=== PATIENT | female | born 1940 | race Caucasian/White ===

== ENCOUNTER → 2017-04-17 | Outpatient (CLI) | payer MEDICARE, BC | LOC: PLD 10:31 → LAB SHORT 10:31 | DX: D22.5 Melanocytic nevi of trunk (principal); D22.71 Melanocytic nevi of right lower limb, including hip | CPT/HCPCS: 88305 ==

== ENCOUNTER → 2017-10-22 | Outpatient (CLI) | payer MEDICARE, BC | END | disposition home or self-care (01) | LOC: PLD 13:55 → LAB SHORT 13:55 | DX: D22.5 Melanocytic nevi of trunk (principal); D22.72 Melanocytic nevi of left lower limb, including hip | CPT/HCPCS: 88305 ==

== ENCOUNTER 2023-01-17 03:53 | Inpatient (IN) | payer MEDICARE, BC ==
[2023-01-17] VITALS (63 sets, daily range): BP systolic 66–146; BP diastolic 40–86
[~2023-01-17] VITALS: Ht 157.5 cm; Wt 59.5 kg
[2023-01-17 04:17] LABS: BASOPHILS ABSOLUTE AUTO 0.03 K/mm3 (0.00-0.23); BASOPHILS PERCENT AUTO 0 % (0-2); EOSINOPHILS PERCENT AUTO 0 % (0-6); Hematocrit 38.1 % (33.0-51.0); Hemoglobin 12.8 g/dL (11.5-16.0); IMMATURE GRAN ABSOLUTE AUTO 0.13 K/mm3 (0.00-0.10); IMMATURE GRAN PERCENT AUTO 1 % (0-1); LYMPHOCYTES ABSOLUTE AUTO 3.41 K/mm3 (0.84-5.20); LYMPHOCYTES PERCENT AUTO 22 % (21-46); MONOCYTES ABSOLUTE AUTO 1.39 K/mm3 (0.16-1.47); MONOCYTES PERCENT AUTO 9 % (4-13); Mean Corpuscular HGB 33.4 pg (26.0-34.0); Mean Corpuscular HGB Conc 33.6 g/dL (31.5-36.5); Mean Corpuscular Volume 100 fL (80-100); Mean Platelet Volume 10.4 fL (9.1-12.4); NEUTROPHILS ABSOLUTE AUTO 10.55 K/mm3 (1.96-9.15); NEUTROPHILS PERCENT AUTO 68 % (41-73); Platelet Count 325 K/mm3 (150-400); RDW Coefficient Variation 12.4 % (11.7-14.2); RDW Standard Deviation 45.5 fL (35.1-46.3); Red Blood Cell Count 3.83 M/mm3 (3.80-5.20); White Blood Cell Count 15.51 K/mm3 (4.00-11.30)
[2023-01-17 04:18] LABS: Base Excess Venous -10.3 mmol/L; Bicarbonate Venous 15.3 mmol/L (24.0-30.0); pH Blood Venous 7.11 (7.34-7.37)
[2023-01-17 04:33] LABS: D-Dimer, Quantitative 4.19 mg/L FEU (0.00-0.52); International Normalized Ratio 0.98; Prothrombin Time Results 10.3 Sec (9.7-11.5)
[2023-01-17 04:41] LABS: Albumin, Blood 2.8 g/dL (3.4-5.0); Albumin/Globulin Ratio 0.7 (0.8-1.8); Bilirubin, Total 0.5 mg/dL (0.1-1.0); Bun/Creatinine Ratio 17.6 (12.0-20.0); Calcium, Blood 8.3 mg/dL (8.5-10.1); Creatinine, Blood 1.19 mg/dL (0.40-1.00); Globulin, Blood 4.1 g/dL (2.2-4.0); Magnesium, Blood 2.7 mg/dL (1.6-2.4); Phosphorus, Blood 4.5 mg/dL (2.5-4.9); Potassium, Blood 3.4 mmol/L (3.5-5.5); Thyroid Stimulating Hormone 1.6 uIU/mL (0.360-4.800); Total Protein, Blood 6.9 g/dL (6.4-8.2)
[2023-01-17 05:37] LABS: Source, Urine Clean Catch
[2023-01-17 05:41] LABS: Appearance, Urine Clear (Clear); Bilirubin, Urine Neg (Neg); Blood, Urine 3+ (Neg); Color, Urine Yellow (P-Yellow); Glucose Qualitative, Urine 1+ (Neg); Ketones, Urine Neg (Neg); Leukocyte Esterase, Urine Neg (Neg); Nitrite, Urine Neg (Neg); Protein, Urine 3+ (Neg); Specific Gravity, Urine 1.015 (1.003-1.022); Urobilinogen, Urine NORM (Normal)
[2023-01-17 06:09] LABS: Anti-Xa UFH, PHA Monitoring <0.10 IU/mL
[2023-01-17 06:18] LABS: U Amphetamine Screen Not Detected; U Barbituate Screen Not Detected; U Benzodiazapine Screen Not Detected; U Buprenorphine Screen Not Detected; U Cannabinoids Screen Not Detected; U Cocaine Screen Not Detected; U Methadone Screen Not Detected; U Methamphetamine Screen Not Detected; U Opiates Screen Not Detected; U Oxycodone Screen Not Detected; U Phencyclidine Screen Not Detected
[2023-01-17 06:20] LABS: White Blood Cells, Urine 0-2 /hpf (0-5)
[2023-01-17 06:21] LABS: Bacteria Mod /hpf; Granular Casts 0-2 /lpf (0); Hyaline Casts 0-2 /lpf (0-2); Squamous Epithelial Cells Few /hpf (Few)
[2023-01-17 08:34] LABS: Adenovirus Not Detected (NOT DETECT); Coronavirus 229E Not Detected (NOT DETECT); Coronavirus HKU1 Not Detected (NOT DETECT); Coronavirus NL63 Not Detected (NOT DETECT); Coronavirus OC43 Not Detected (NOT DETECT); Human Metapneumovirus Not Detected (NOT DETECT); Human Rhinovirus/Enterovirus Not Detected (NOT DETECT); Influenza A/2009-H1 Detected (NOT DETECT); Influenza A/H1 Not Detected (NOT DETECT); Influenza A/H3 Not Detected (NOT DETECT); SARS-Cov-2 (COVID-19), BioFire Not Detected (NOT DETECT)
[2023-01-17 08:35] LABS: Bordetella pertussis Not Detected (NOT DETECT); Chlamydophila pneumoniae Not Detected (NOT DETECT); Influenza B Not Detected (NOT DETECT); Mycoplasma pneumoniae Not Detected (NOT DETECT); Parainfluenza Virus 1 Not Detected (NOT DETECT); Parainfluenza Virus 2 Not Detected (NOT DETECT); Parainfluenza Virus 3 Not Detected (NOT DETECT); Parainfluenza Virus 4 Not Detected (NOT DETECT); Respiratory Syncytial Virus Not Detected (NOT DETECT)
[2023-01-17 08:46] LABS: Albumin, Blood 2.5 g/dL (3.4-5.0); Anion Gap 7 mmol/L (6-16); Blood Urea Nitrogen 22 mg/dL (8-24); Bun/Creatinine Ratio 16.3 (12.0-20.0); CO2, Blood 27 mmol/L (21-32); Calcium, Blood 7.6 mg/dL (8.5-10.1); Chloride, Blood 107 mmol/L (98-108); Creatinine, Blood 1.35 mg/dL (0.40-1.00); Glomerular Filtration Rate 39 (60-); Glucose, Blood 218 mg/dL (70-99); Phosphorus, Blood 3.7 mg/dL (2.5-4.9); Potassium, Blood 3.2 mmol/L (3.5-5.5); Sodium, Blood 141 mmol/L (136-145)
--- NOTE | 2023-01-17 10:22 | NUR ---
Assumed care of pt at 0740 on arrival to ICU 13 from emergency departement. Telephone report received from Miri ROCHA prior to pt arrival. Slid from ED gurney to ICU bed using 5 staff. Arrived with propofol at 5 ml/hr. Pump set to 15 mcg/kg/min with dosing weight of 60 kg to yield similar rate. Finishing NS bolus. BP stable. HR low 100s with ST depressions. Noted EKG from emergency department which showed wide QRS tachycardia and discussed plan of care with Dr Richter who was at pt's bedside shortly after pt arrived. Dr Richter discussed plan of care with pt's daughter, Genesis. After bolus complete, BP dropped. Propofol stopped and this helped with hypotension. BP and MAP borderline. Call out to Dr Richter as Dr Desai has not seen pt yet.
[2023-01-17 16:01] LABS: Albumin, Blood 2.4 g/dL (3.4-5.0); Anion Gap 4 mmol/L (6-16); Blood Urea Nitrogen 21 mg/dL (8-24); Bun/Creatinine Ratio 16.5 (12.0-20.0); CO2, Blood 25 mmol/L (21-32); Calcium, Blood 7.7 mg/dL (8.5-10.1); Chloride, Blood 111 mmol/L (98-108); Creatinine, Blood 1.27 mg/dL (0.40-1.00); Glomerular Filtration Rate 42 (60-); Glucose, Blood 122 mg/dL (70-99); Phosphorus, Blood 2.1 mg/dL (2.5-4.9); Potassium, Blood 4.1 mmol/L (3.5-5.5); Sodium, Blood 140 mmol/L (136-145)
--- NOTE | 2023-01-17 17:57 | NUR ---
SUMMARY Neuro: Propofol off since this AM. RASS 0. CPOT 0. Nods head "No" when asked if she is experiencing confusion, fogginess. Has not reached for ETT and is consistently calm and redirectable. Pt has been taken out of restraints. Moves all extremities purposefully with equal strength and range of motion. Right pupil is oblong and bigger than L. Pt has hx of cataract surgery. Pt indicates that she does not like oral care but allows staff to do it when education and instruction. Pt also indicates that she does not like to lay flat (primary during boosts and repositioning) due to back pain. Resp: 7.5 cm remains at expected placement of 22 cm at gums. Vent settings ACVC 16/340/5/40%. SpO2 100%. ETCO2 23. Cardiac: SR per monitor with BBB. BP fluctuated during shift. PICC line was placed with anticipation that levophed would be started. BP improved after calcium gluconate was given. Levophed is at bedside, but has not been started. GI: TF started per orders : Good output from rivera catheter today. Skin: Unchanged from initial assessment. Psychosocial: Pt has been calm and cooperative. Family has been at bedside continuously throughout day. Family tearful at severity of pt's illness and expresses stress, especially since pt's spouse having a medical procedure tomorrow. Pt's spouse and daughter express anxiety and often require repetition of education provided. Overall, they express understanding of plan of care.
--- NOTE | 2023-01-17 20:00 | NUR ---
ASSUMED CARE OF PT AT 1900. BEDSIDE REPORT RECEIVED. PT'S IN ROOM AND PARTICIPATES IN REPORT. PT ON NO SEDATION. SHE PARTICIPATES WITH THUMBS UP OR NODDING HER HEAD 'YES' OR 'NO' TO QUESTIONS. WILL REVIEW CHART AND PLAN OF CARE FOR THIS PT.
[2023-01-17] MEDS ORDERED: AZIT250 PO (20:23)
[2023-01-17] MEDS ORDERED: Ventolin/Prove6.7 GM INH (20:23)
[2023-01-17] MEDS ORDERED: BENZONATATE100 MG PO (20:24)
[2023-01-17] MEDS ORDERED: PRED20 PO (20:25)
--- NOTE | 2023-01-17 21:35 | NUR ---
PT'S LEAVES FOR THE NIGHT. BOTH HE AND PATIENT ABLE TO PARTICIPATE IN ADMISSION QUESTIONARE. PT BACK TO SEDATION WITH PROPOFOL AT 25 MCG'S/KG/MIN. OF NOTE: PT'S BLOOD PRESSURES HAVE LOWERED. WILL MONITOR FOR REDUCTION IN SEDATION VERSUS PRESSORS. HAVE SUCTIONED PT WITH RETURN OF SCAN AMOUNT OF VERY PALE YELLOW SECRETIONS. PT MAINTAINS > 90 PERCENT SATURATIONS WITH CURRENT VENT SETTINGS: AC 16, Tv 340, FIO2 30 % WITH PEEP 5.
[2023-01-18] VITALS (70 sets, daily range): BP systolic 85–163; BP diastolic 35–130
[2023-01-18 04:05] LABS: Hematocrit 30.8 % (33.0-51.0); Hemoglobin 10.6 g/dL (11.5-16.0); Mean Corpuscular HGB 33.1 pg (26.0-34.0); Mean Corpuscular HGB Conc 34.4 g/dL (31.5-36.5); Mean Corpuscular Volume 96 fL (80-100); Mean Platelet Volume 10.3 fL (9.1-12.4); Platelet Count 235 K/mm3 (150-400); RDW Standard Deviation 46.3 fL (35.1-46.3); White Blood Cell Count 19.28 K/mm3 (4.00-11.30)
[2023-01-18 04:25] LABS: Albumin, Blood 2.2 g/dL (3.4-5.0); Albumin/Globulin Ratio 0.7 (0.8-1.8); Bilirubin, Total 0.3 mg/dL (0.1-1.0); Bun/Creatinine Ratio 16.8 (12.0-20.0); Calcium, Blood 7.2 mg/dL (8.5-10.1); Creatinine, Blood 1.25 mg/dL (0.40-1.00); Phosphorus, Blood 2.7 mg/dL (2.5-4.9); Total Protein, Blood 5.2 g/dL (6.4-8.2)
--- NOTE | 2023-01-18 07:16 | NUR ---
Assumed care of pt at 0700. Report received from Ashu ROCHA. Pt sedated with propofol at 35 mcg/kg/min. Levophed at 4 mcg/min to maintain MAP 65 or greater. Heparin per orders. KCl- infusing, Kphos held until this is done. Discussed electrolyte repletion with Dr Richter and he will be ordering calcium replacement as well. 7.5 cm ETT at expected placment of 22 cm at [facility]. Vent settings ACVC 16/340/5/30%. SpO2 99% ETCO2 25.
--- NOTE | 2023-01-18 07:41 | NUR ---
PT HAS BEEN PLACED TO PROPOFOL AT RATE INCREMENTED UPT TO 35 MCG'S/KG/MIN. PT HAS GOOD VENT COMPLAINCE WITH THIS. PT'S HAS COME IN TO SEE PT THIS MORNING. UPDATE GIVEN. LIONEL, PT'S DAUGHTER CALLS AND UPDATE GIVEN WELL. PT'S DEMONSTRATES BEING VERY NERVOUS CONCERNING HIS AND HER BEING INTUBATED. REASSURANCE GIVEN. PT HAS REMAINED OUT OF RESTRAINTS THROUGOUT THE NIGHT. HAS NOT MADE ANY ATTEMPTS TO PULL AT HER LINES OR TUBES. REPORT GIVEN TO ONCOMING RN
--- NOTE | 2023-01-18 12:44 | NUR ---
Propofol off since 1210 for SAT/SBT. Pt quickly awoke and responds meaninfully to gentle verbal stimulus. Interacting with pt's daughter, Genesis. Placed on PS 3/5 with 30% FiO2 at 1240. RR 18, tidal volumes 550-600 mL. ETCO2 29. SpO2 100%.
--- NOTE | 2023-01-18 13:55 | NUR ---
Extubated at 1340. Placed on 2 LPM NC. SpO2 97%. Resting in bed with eyes closed. A&O x 4. Answers questions, follows commands, verbalizes needs. Pleasant and cooperative with care. Pt's daughter in room visiting at this time.
[2023-01-18 17:24] LABS: Albumin, Blood 2.4 g/dL (3.4-5.0); Anion Gap 6 mmol/L (6-16); Blood Urea Nitrogen 19 mg/dL (8-24); Bun/Creatinine Ratio 15.4 (12.0-20.0); CO2, Blood 21 mmol/L (21-32); Calcium, Blood 7.7 mg/dL (8.5-10.1); Chloride, Blood 117 mmol/L (98-108); Creatinine, Blood 1.23 mg/dL (0.40-1.00); Glomerular Filtration Rate 43 (60-); Glucose, Blood 170 mg/dL (70-99); Potassium, Blood 3.3 mmol/L (3.5-5.5); Sodium, Blood 144 mmol/L (136-145)
--- NOTE | 2023-01-18 18:20 | NUR ---
SUMMARY Neuro/Musc/ADLs: Answers questions, follows commands, verbalizes needs. Pleasant and cooperative with care. Able to mobilize with one person assist using gait belt and walker. Pt weak, but tolerates activity as well and is easily coachable and receptive to verbal cues. Transferred to recliner chair today and states she would like to sleep in recliner chair. She reports that she is afraid of laying flat; she experiences back pain with laying flat. She does not typically take pain meds for her back; she does not take any meds at home currently. CHG bath given today. Repositioned Q2H. Oral care Q4H. Resp: Post-extubation, tight on R side and clear on L side. SpO2 97% on room air. Pt has dry, nonproductive cough. Cardiac: Levophed DC'd shortly after propofol stopped. BP remains stable. HR 82 with 1st degree HB and BBB. GI: Passed [place] Bedside Swallow eval. Tolerating PO intake well but has poor appetite. Patient took 3 bites of pea soup, a food she states she likes, and then said she was full. Was not interested in remainder of tray. : Flores catheter remains in place for strict I&O. Catheter secured to bed, patent and draining. Good output of clear urine today. Skin: Unchanged from initial assessment. Psychosocial: Interacting with family appropriately. Pt and family appropriately and actively participate in patient's care.
--- NOTE | 2023-01-18 20:00 | NUR ---
ASSUMED CARE OF PT AT 1900. REPORT RECEIVED AT BEDSIDE. PT PRESENTS SITTING UPRIGHT IN RECLINER CHAIR VISITING WITH FAMILY. PT WANTING TO SLEEP IN RECLINER CHAIR FOR THE NIGHT. DISCUSSED WITH PT THAT HER POSITION WOULD BE ADJUSTED AT Q 2 HOURS. PT CONTINUES ON HEPARIN DRIP WITHOUT S/S BLEED. PT HAS OCCASSIONAL COUGH. NON PRODUCTIVE. WILL REVIEW CHART AND PLAN OF CARE FOR THIS PT.
[2023-01-19] VITALS (23 sets, daily range): BP systolic 102–161; BP diastolic 55–92
[2023-01-19 04:08] LABS: BASOPHILS ABSOLUTE AUTO 0.04 K/mm3 (0.00-0.23); BASOPHILS PERCENT AUTO 0 % (0-2); EOSINOPHILS ABSOLUTE AUTO 0.03 K/mm3 (0.00-0.68); EOSINOPHILS PERCENT AUTO 0 % (0-6); Hematocrit 26.2 % (33.0-51.0); Hemoglobin 8.8 g/dL (11.5-16.0); IMMATURE GRAN ABSOLUTE AUTO 0.41 K/mm3 (0.00-0.10); IMMATURE GRAN PERCENT AUTO 2 % (0-1); LYMPHOCYTES PERCENT AUTO 5 % (21-46); MONOCYTES ABSOLUTE AUTO 0.72 K/mm3 (0.16-1.47); MONOCYTES PERCENT AUTO 4 % (4-13); Mean Corpuscular HGB 32.7 pg (26.0-34.0); Mean Corpuscular HGB Conc 33.6 g/dL (31.5-36.5); Mean Corpuscular Volume 97 fL (80-100); Mean Platelet Volume 10.8 fL (9.1-12.4); NEUTROPHILS ABSOLUTE AUTO 18.43 K/mm3 (1.96-9.15); NEUTROPHILS PERCENT AUTO 89 % (41-73); Platelet Count 242 K/mm3 (150-400); RDW Coefficient Variation 13.5 % (11.7-14.2); RDW Standard Deviation 48.1 fL (35.1-46.3); Red Blood Cell Count 2.69 M/mm3 (3.80-5.20); White Blood Cell Count 20.73 K/mm3 (4.00-11.30)
[2023-01-19 04:25] LABS: Albumin, Blood 2.2 g/dL (3.4-5.0); Albumin/Globulin Ratio 0.7 (0.8-1.8); Bilirubin, Total 0.4 mg/dL (0.1-1.0); Bun/Creatinine Ratio 15.6 (12.0-20.0); Calcium, Blood 7.3 mg/dL (8.5-10.1); Creatinine, Blood 1.22 mg/dL (0.40-1.00); Globulin, Blood 3.1 g/dL (2.2-4.0); Potassium, Blood 4.2 mmol/L (3.5-5.5); Total Protein, Blood 5.3 g/dL (6.4-8.2)
--- NOTE | 2023-01-19 05:03 | NUR ---
PT HAS BEEN UP IN RECLINER CHAIR THROUGHOUT THE NIGHT. PT ASSISTED WITH ADJUSTMENTS IN BED AT ABOUT Q 2 HOURS. SHE IS ABLE TO TURN HERSELF TO PREVENT SKIN ISSUES. DENIES COMPLAINTS EXCEPT FOR OCCASSIONAL COUGH. HEPARIN DRIP HAS BEEN DISCONTINUED PER DR GUTIÉRREZ. PT ASLEEP SO WILL ADDRESS WITH PT WHEN SHE AWAKENS. WILL CONTINUE TO MONITOR PT, AND WILL REPORT OFF TO ONCOMING RN.
--- NOTE | 2023-01-19 06:30 | NUR ---
PT HAD MOVED DOWNWARDS IN HER RECLINER CHAIR AND STRUGGLED TO LIFT HERSELF BACK TO POSITION. TWO PERSON ASSIST TO GET HER REPOSITIONED. PT GOT SCARED, AND DYSPNEIC. PLACED O2 ON AT 3 L/M. PT TACHYCARDIC. WILL MONITOR AND WILL REPORT OFF TO ONCOMING RN.
--- NOTE | 2023-01-19 06:41 | NUR ---
CALL MADE TO DR GUTIÉRREZ CONCERNING HEART RATE CONTINUING IN 140'S. TO ORDER A BETA-KAREN. WILL INFORM PT. SHE DOES STATE IT FEELS IF HER HEART IS "POUNDING"
--- NOTE | 2023-01-19 18:00 | NUR ---
Shift Summary: Care assumed at 0700hr. At shift change, patient tachycardiac in the 130's, and dyspneic with respiratory rate in the 30's. O2 requirements increased from 2L to 7L NC. Call placed to Dr. Richter who quickly reported to patient's room. Received orders for IV lasix and BiPAP. Also received orders for chest x-ray and repeat troponins. Lasix and BiPAP given with good effect, dyspnea quickly resolved. Patient tolerated BiPAP mask for approx 3hr, before asking for a break. Transitioned to NC at 5L, then titrated down to room air. Remained on room air and without dyspnea for remainder of shift. Adequate urine output (over 2L) via rivera catheter. PICC line patent and intact. Patient sleeping at times, but easily roused to alert and oriented x4. Poor apatite, only consuming a few bites of lunch and dinner. Dr. La and Dr. Richter discussed patient's case. Concern that respiratory symptoms mostly r/t cardiac/CAD. Dr. Richter consulted Dr. Yu (cardiology) who plans to perform angiogram tomorrow at 1100hr. Patient and both aware of plan of care. Call light in reach, makes needs known. Will continue to monitor until report to NOC shift RN.
[2023-01-20] VITALS (53 sets, daily range): BP systolic 83–173; BP diastolic 48–94
[2023-01-20 03:42] LABS: BASOPHILS ABSOLUTE AUTO 0.06 K/mm3 (0.00-0.23); BASOPHILS PERCENT AUTO 0 % (0-2); EOSINOPHILS PERCENT AUTO 0 % (0-6); Hematocrit 29.7 % (33.0-51.0); Hemoglobin 10.2 g/dL (11.5-16.0); IMMATURE GRAN ABSOLUTE AUTO 0.85 K/mm3 (0.00-0.10); IMMATURE GRAN PERCENT AUTO 4 % (0-1); LYMPHOCYTES PERCENT AUTO 7 % (21-46); MONOCYTES ABSOLUTE AUTO 0.96 K/mm3 (0.16-1.47); MONOCYTES PERCENT AUTO 4 % (4-13); Mean Corpuscular HGB 33.4 pg (26.0-34.0); Mean Corpuscular HGB Conc 34.3 g/dL (31.5-36.5); Mean Corpuscular Volume 97 fL (80-100); Mean Platelet Volume 10.5 fL (9.1-12.4); NEUTROPHILS ABSOLUTE AUTO 19.48 K/mm3 (1.96-9.15); NEUTROPHILS PERCENT AUTO 84 % (41-73); Platelet Count 251 K/mm3 (150-400); RDW Coefficient Variation 13.5 % (11.7-14.2); RDW Standard Deviation 48.1 fL (35.1-46.3); Red Blood Cell Count 3.05 M/mm3 (3.80-5.20); White Blood Cell Count 23.05 K/mm3 (4.00-11.30)
[2023-01-20 04:00] LABS: Anion Gap 5 mmol/L (6-16); Blood Urea Nitrogen 35 mg/dL (8-24); Bun/Creatinine Ratio 21.7 (12.0-20.0); CO2, Blood 23 mmol/L (21-32); Calcium, Blood 7.8 mg/dL (8.5-10.1); Chloride, Blood 117 mmol/L (98-108); Creatinine, Blood 1.61 mg/dL (0.40-1.00); Glomerular Filtration Rate 31 (60-); Glucose, Blood 99 mg/dL (70-99); Magnesium, Blood 2.1 mg/dL (1.6-2.4); Potassium, Blood 4.7 mmol/L (3.5-5.5); Sodium, Blood 145 mmol/L (136-145); Vancomycin, Random 18.9 ug/mL
--- NOTE | 2023-01-20 12:48 | NUR ---
RETURN FROM PULMONARY NURSE PRACTITIONER PT TAKEN TO PULMONARY NURSE PRACTITIONER AT 1030. PT RETURNED TO ICU ROOM 13 AT 1240 S/P STENT PLACEMENT. PT WITH RIGHT ULNAR ACCESS SITE WITH TWO TR BANDS IN PLACE. PROXIMAL BAND WITH 7 ML AIR, AND DISTAL BAND AT ACCESS SITE WITH 12 ML AIR. SMALL OOZING NOTED FROM DISTAL BAND WITH SMALL HEMATOMA. HAND IS PURPLE DISTAL TO TR BANDS. CAP REFILL LESS THAN 3 SECONDS. GOOD PLETH NOTED TO SPO2 SENSOR ON RIGHT HAND. ARM BOARD IN PLACE TO RIGHT WRIST. VITAL SIGNS STABLE. PT FAMILY AT BEDSIDE. WILL CONTINUE TO MONITOR.
--- NOTE | 2023-01-20 15:17 | NUR ---
TR BAND COMPLICATIONS PT INITIALLY RETURNED FROM CHILD SUPPORT AGENT AT 12[address] WITH TWO [address] BAND IN PLACE TO RIGHT ULNAR ACCESS SITE. OVER THE NEXT 45 MINS PT CONTINUED TO COMPLAIN OF INCREASING PAIN TO RIGHT ARM/HAND. PT HAND WITH INCREASING PETECHIAE AND DARKENING PURPLE DISCOLORATION FROM DISTAL TR BAND DOWN. OOZING CONTINUED AT TR BAND SITE. DR MCARTHUR NOTIFIED, ORDERS RECIEVED FOR FENTANYL PRN. DR MCARTHUR AT BEDSIDE AT 1350 TO ASSESS SITE. PROXIMAL TR BAND DEFLATED AT THAT TIME. DISTAL TR BAND REMAINED INFLATED WITH 12 ML AIR. AND OOZING NOTED. DR MCARTHUR CALLED IN BODY SHOP ESTIMATOR, DAVIS TO ASSIST. AGUILAR ARRIVED AT 1403. BOTH TR BANDS REMOVED AND MANUAL PRESSURE HELD AT INSERTION SITE ONLY. PURPLE DISCOLORATION TO ENTIRE HAND GRADUALLY SUBSIDED, BUT LARGE HEMATOMA TO INNER PALM/CARPAL AREA REMAIND. SITE MASSAGED BY AGUILAR MANUAL PRESSURE HELD. AFTER AROUND 20 MINS OF MANUAL PRESSURE, ONE NEW TR BAND PLACED TO SITE AND INFLATED TO 13 ML. COBAN AND GAUZE WRAP APPLIED TO OOZING DISTAL TO NEW TR BAND. ANOTHER 20 MINS OF MANUAL PRESSURE HELD BY MIDDLE SCHO[employer] ENGLISH TEACHER UNTIL OOZING SUBSIDED. PT WITH MUCH IMPROVED COLOR TO HAND, WITH LARGE AMOUNT OF PETECHIAE REMAINING. GOOD SPO2 PLETH NOTED THROUGHOUT ENTIRE PROCESS. 2 ML AIR DEFLATED FROM TR BAND AT 1500 WITHOUT ADDITIONAL OOZING NOTED. PT HAS REPORTED SOME RELIEF OF PAIN AT THIS TIME. WILL CONTINUE TO MONITOR AND CONTINUE TO DEFLATE TR BAND PER ORDERS.
--- NOTE | 2023-01-20 17:14 | NUR ---
SHIFT SUMMARY PT HAS REMAINED ALERT AND ORIENTED WHEN AWAKE. PT RESTING QUIETLY AT THIS TIME. PT ANSWERS QUESTIONS APPROPRIATELY. PT HAS DENIED CHEST PAIN THROUGHOUT THE SHIFT. PT HAS REMAINED ON ROOM AIR THROUGHOUT THE SHIFT. VITAL SIGNS HAVE REMAINED STABLE. PICC TO DOMENICO SALINE LOCKED. BANEGAS TEMP PROBE REMAINS IN PLACE WITH LARGE AMOUNT OF CLEAR YELLOW URINE OUTPUT THIS SHIFT. PT TAKING PO FLUID INTAKE THIS AFTERNOON. ONE TR BAND REMAINS IN PLACE TO RIGHT ULNAR ACCESS SITE S/P INSPECTOR ADVANCED COMPOSITE. TR BAND DEFLATED TO 5 ML AIR AT THIS TIME WITHOUT ANY FURTHER BLEEDING/HEMATOMA AT THIS TIME. RIGHT HAND REMAINS SWOLLEN WITH DARK PETECHIAE, BUT COLOR OF SKIN HAS MUCH IMPROVED FROM PRIOR. SEE PREVIOUS NOTES FOR MORE INFO ABOUT TR BAND COMPLICATION. PT WITH MULTIPLE FAMILY MEMBERS AT BEDSIDE THROUGHOUT THE SHIFT. WILL CONTINUE TO MONITOR AND REPORT OFF TO ONCOMING RN.
--- NOTE | 2023-01-20 19:42 | NUR ---
ASSUMPTION OF CARE: RECEIVED REPORT FROM TOM ROCHA. PT ALERT AND ORIENTED X3-4. ABLE TO ANSWER QUESTIONS AND MAKE NEEDS KNOWN. PT HAS SMALL PERIODS OF CONFUSION BUT IS VERY EASILY REDIRECTABLE. PT ON RA WITH SPO2 >92%. DENIES SOB. LUNG SOUNDS CLEAR. CENTER CONSULTANT IN PLACE, SR WITH BBB. HR 60'S, SBP 130'S. DENIES CHEST PAIN OR PRESSURE. PICC LINE TO DOMENICO, SALINE LOCKED. BANEGAS IN PLACE, DRAINING TO GRAVITY. TR BAND TO RIGHT ARM REMAINS IN PLACE, ARMBOARD IN PLACE. RIGHT HAND PURPLISH IN COLOR WITH AREAS OF PETECHIAE. NO NEW BLEEDING OR OOZING NOTED. EDEMA PRESENT IN RIGHT HAND, ELEVATED ON PILLOWS, PT DENIES PAIN. AT BEDSIDE, UPDATED TO PLAN OF CARE. CALL LIGHT IN REACH.
--- NOTE | 2023-01-20 21:04 | NUR ---
UPDATE: TR BAND REMOVED AT 2014. OBSITE DRESSING IN PLACE, WITH VERY SMALL AMOUNT OF BLOOD NOTICED. PT DENIES ANY PAIN IN HAND. BRUISING OUTLINED WITH SKIN MARKER. ARMBOARD IN PLACE. GOOD SPO2 PLETH IN INDEX FINGER AND RING FINGER. CAP REFILL <3.
[2023-01-21] VITALS (18 sets, daily range): BP systolic 112–166; BP diastolic 51–70
[2023-01-21 05:36] LABS: BASOPHILS ABSOLUTE AUTO 0.03 K/mm3 (0.00-0.23); BASOPHILS PERCENT AUTO 0 % (0-2); EOSINOPHILS PERCENT AUTO 0 % (0-6); Hematocrit 28.5 % (33.0-51.0); Hemoglobin 9.8 g/dL (11.5-16.0); IMMATURE GRAN PERCENT AUTO 5 % (0-1); LYMPHOCYTES ABSOLUTE AUTO 1.75 K/mm3 (0.84-5.20); LYMPHOCYTES PERCENT AUTO 13 % (21-46); MONOCYTES ABSOLUTE AUTO 1.25 K/mm3 (0.16-1.47); MONOCYTES PERCENT AUTO 9 % (4-13); Mean Corpuscular HGB 33.2 pg (26.0-34.0); Mean Corpuscular HGB Conc 34.4 g/dL (31.5-36.5); Mean Corpuscular Volume 97 fL (80-100); Mean Platelet Volume 10.8 fL (9.1-12.4); NEUTROPHILS ABSOLUTE AUTO 9.65 K/mm3 (1.96-9.15); NEUTROPHILS PERCENT AUTO 73 % (41-73); Platelet Count 213 K/mm3 (150-400); RDW Coefficient Variation 13.2 % (11.7-14.2); RDW Standard Deviation 46.7 fL (35.1-46.3); Red Blood Cell Count 2.95 M/mm3 (3.80-5.20); White Blood Cell Count 13.28 K/mm3 (4.00-11.30)
--- NOTE | 2023-01-21 06:11 | NUR ---
SHIFT SUMMARY: NO ACUTE EVENTS T/O THE NIGHT. PT REMAINS ALERT AND ORIENTED T/O THE SHIFT. ABLE TO ANSWER QUESTIONS AND FOLLOW COMMANDS. PT ABLE TO SLEEP OFF AND ON. DENIES PAIN. ACCESS SITE TO RIGHT ARM HAS NO NEW BLEEDING OR OOZING. HAND REMAINS PURPLISH IN COLOR WITH PETECHIAE NOTED AND EDEMA. ARMBOARD REMAINS IN PLACE. SPO2 SHOWS GOOD WAVEFORM IN INDEX FINGER AND RING FINGER. REMAINS ON RA WITH SPO2 >94%. DENIES SOB. ADVERTISING LAYOUT WORKER IN PLACE, SR WITH HR 50'S-60'S. SBP 120'S-130'S. DENIES CHEST PAIN OR PRESSURE. PICC LINE TO DOMENICO, PATENT AND SALINE LOCKED. BANEGAS DRAINING TO GRAVITY, YELLOW URINE. NO BM YET THIS SHIFT. BED LOW AND LOCKED. CALL LIGHT IN REACH.
[2023-01-21 06:15] LABS: Albumin, Blood 2.4 g/dL (3.4-5.0); Anion Gap 5 mmol/L (6-16); Blood Urea Nitrogen 45 mg/dL (8-24); Bun/Creatinine Ratio 30.6 (12.0-20.0); CO2, Blood 26 mmol/L (21-32); Calcium, Blood 7.8 mg/dL (8.5-10.1); Chloride, Blood 110 mmol/L (98-108); Creatinine, Blood 1.47 mg/dL (0.40-1.00); Glomerular Filtration Rate 35 (60-); Glucose, Blood 86 mg/dL (70-99); Magnesium, Blood 2.4 mg/dL (1.6-2.4); Phosphorus, Blood 2.9 mg/dL (2.5-4.9); Potassium, Blood 4.1 mmol/L (3.5-5.5); Sodium, Blood 141 mmol/L (136-145)
--- NOTE | 2023-01-21 17:13 | NUR ---
SHIFT SUMMARY NO ACUTE CHANGES THIS SHIFT. PT HAS BEEN SLEEPING OFF AND ON THROUGHOUT THE SHIFT. WHEN AWAKE PT IS ALERT AND ORIENTED. PT IS ABLE TO ANSWER QUESTIONS APPROPRIATELY AND MAKE NEEDS KNOWN. VITAL SIGNS HAVE REMAINED STABLE. PT REMAINS ON ROOM AIR. PT TAKING IN SOME PO INTAKE THIS SHIFT, BUT APPETITE REMAINS POOR. PT IS ABLE TO SHIFT SELF IN BED FOR COMFORT. PICC TO DOMENICO REMAINS C/D/I, SALINE LOCKED. BANEGAS TEMP PROBE REMAINS IN PLACE WITH CLEAR YELLOW OUTPUT NOTED. RIGHT HAND/WRIST DISCOLORATION AND SWELLING REMAINS UNCHANGED. WRIST BOARD REMAINS IN PLACE, AND ULNAR ACCESS SITE REMAINS TENDER TO PALPATION. PT SPOUSE AT BEDSIDE THROUGHOUT THE DAY. WILL CONTINUE TO MONITOR AND REPORT OFF TO ONCOMING RN.
--- NOTE | 2023-01-21 18:42 | NUR ---
TRANSFER TO [facility] REPORT CALLED VIA PHONE. ALL QUESTIONS ANSWERED. PT TAKEN TO 341 VIA BED. ALL PT BELONGINGS TAKEN WITH PT. PT SPOUSE AND OTHER FAMILY MEMBERS FOLLOWED TO NEW ROOM.
--- NOTE | 2023-01-21 19:55 | NUR ---
ASSUMED CARE OF PATIENT UPON HER ARRIVAL FROM ICU AT 1830. TRANSFERRED TO MEDICAL FLOOR BED, GIVEN WARM BLANKET, RUE ELEVATED ON PILLOW TO EASE EDEMA AND PAIN. DENIED PAIN. BANEGAS CATHETER PRESENT. SPOUSE AT BEDSIDE. PT IS HOPING TO GO HOME TOMORROW.
--- NOTE | 2023-01-22 04:31 | NUR ---
CARD CUTTER HELPER SUMMARY VSS. LUNG SOUNDS CLEAR PER AUSCULTATION. IV ANTIBIOTICS INFUSING PER APR. DROPLET PRECAUTIONS MAINTAINED FOR FLU S/S. BANEGAS DRAINING GEORGE, TO BE DC'D LATER THIS SHIFT. DENIED PAIN WHEN ASKED. ALERT AND ORIENTED. RIGHT HAND REMAINS WRAPPED, VOICED PAIN DUE TO PRVIOUS PROCEDURE IN ICU. HAS BEEN RESTING QUIETLY WITH FEW INTERRUPTIONS. CALL LIGHT IN REACH. ILL CONTINUE TO MONITOR
[2023-01-22 05:35] VITALS: BP 152/50
--- NOTE | 2023-01-22 06:01 | NUR ---
BANEGAS CATH REMOVED. TOLERATED WELL. INSTRUCTED TO LET STAFF KNOW WHEN SHE VOIDS. CALL LIGHT IN REACH
[2023-01-22 07:23] VITALS: BP 146/59
[2023-01-22 15:42] VITALS: BP 149/67
--- NOTE | 2023-01-22 19:09 | NUR ---
SHIFT SUMMARY: PT A/O X4, STANDBY ASSIST WITH WALKER AND GB. PLEASANT AND COOPERATIVE. PT WORKED WITH PT, DECLINED OT BEING TOO TIRED AFTER PT. PT HAD HOME O2 EVAL AND DOES NOT NEED HOME O2 ON DISCHARGE. PT CONTINUES TO BE ON RA. PT HAD 2 BM'S TODAY. NO ACUTE CHANGES.
[2023-01-22 20:46] VITALS: BP 153/71
[2023-01-23 04:25] VITALS: BP 152/59
[2023-01-23 06:39] LABS: BASOPHILS ABSOLUTE AUTO 0.02 K/mm3 (0.00-0.23); BASOPHILS PERCENT AUTO 0 % (0-2); EOSINOPHILS ABSOLUTE AUTO 0.09 K/mm3 (0.00-0.68); EOSINOPHILS PERCENT AUTO 1 % (0-6); Hematocrit 27.9 % (33.0-51.0); Hemoglobin 9.4 g/dL (11.5-16.0); IMMATURE GRAN ABSOLUTE AUTO 0.45 K/mm3 (0.00-0.10); IMMATURE GRAN PERCENT AUTO 4 % (0-1); LYMPHOCYTES ABSOLUTE AUTO 1.95 K/mm3 (0.84-5.20); LYMPHOCYTES PERCENT AUTO 18 % (21-46); MONOCYTES ABSOLUTE AUTO 1.48 K/mm3 (0.16-1.47); MONOCYTES PERCENT AUTO 13 % (4-13); Mean Corpuscular HGB 32.5 pg (26.0-34.0); Mean Corpuscular HGB Conc 33.7 g/dL (31.5-36.5); Mean Corpuscular Volume 97 fL (80-100); Mean Platelet Volume 10.5 fL (9.1-12.4); NEUTROPHILS ABSOLUTE AUTO 7.17 K/mm3 (1.96-9.15); NEUTROPHILS PERCENT AUTO 64 % (41-73); Platelet Count 224 K/mm3 (150-400); RDW Coefficient Variation 12.8 % (11.7-14.2); RDW Standard Deviation 44.9 fL (35.1-46.3); Red Blood Cell Count 2.89 M/mm3 (3.80-5.20); White Blood Cell Count 11.16 K/mm3 (4.00-11.30)
[2023-01-23 06:57] LABS: Albumin, Blood 2.3 g/dL (3.4-5.0); Albumin/Globulin Ratio 0.7 (0.8-1.8); Bilirubin, Total 0.8 mg/dL (0.1-1.0); Bun/Creatinine Ratio 26.9 (12.0-20.0); Calcium, Blood 7.7 mg/dL (8.5-10.1); Creatinine, Blood 1.04 mg/dL (0.40-1.00); Globulin, Blood 3.1 g/dL (2.2-4.0); Potassium, Blood 3.8 mmol/L (3.5-5.5); Total Protein, Blood 5.4 g/dL (6.4-8.2)
--- NOTE | 2023-01-23 07:50 | NUR ---
Shift Summary Pt slept well through most of the night. Q2 turns. Occasional strong productive cough, lung sounds are clear. No c/o of chest pain or SoB tonight. AOx4, no c/o of pain or nausea.
[2023-01-23 07:58] VITALS: BP 143/55
--- NOTE | 2023-01-23 10:10 | NUR ---
PATIENT RESTING IN ROOM, ALERT AND ORIENTED, DR MUNGUIA ROUNDED, PATIENT TO BE DISCHARGED LATER TODAY, DOMENICO PICC S.L., PATIENT DENEIS PAIN OR NV, REPORT FROM JOSE GUADALUPE ROCHA
[2023-01-23] MEDS ORDERED: CLOP75 PO (13:19)
[2023-01-23] MEDS ORDERED: IPRAT-ALBUT 0.5-3 ML INH (13:20)
[2023-01-23] MEDS ORDERED: METO25ER PO (13:21)
[2023-01-23] MEDS ORDERED: ASPI81CH PO (13:22)
[2023-01-23] MEDS ORDERED: PANT40 PO (13:23)
--- NOTE | 2023-01-23 15:15 | NUR ---
DISCHARGE SUMMARY: PT DISCHARGED HOME WITH . EDUCATED PT AND SPOUSE ON DISCHARGE MEDICATIONS AND INSTRUCTIONS. PT AND SPOUSE VU. ASSISTED PT GETTING DRESSED. ENAMEL PULVERIZER DARSHANA REMOVED PICC LINE. NO S/S OF BLEEDING OT PAIN ON DISCHARGE. PT ESCORTED TO POV VIA WC WITH BELONGINGS. PT ABLE TO SELF TX TO CAR.
== END 2023-01-23 15:01 | disposition home health service (06) | DRG 853 ==
LOC: ER 03:53 → MEDS 06:02 → ICUE 06:02 → MEDS 01-21 18:29
PROVIDERS: Emergency Medicine; Family Medicine; Internal Medicine; Internal Medicine Critical Care Medicine; ADMIT Internal Medicine
PROC: 5A09357 Assistance with Respiratory Ventilation, Less than 24 Consecutive Hours, Continuous Positive Airway Pressure (ICD-10-PCS; principal; 2023-01-17)
PROC: 0BH17EZ Insertion of Endotracheal Airway into Trachea, Via Natural or Artificial Opening (ICD-10-PCS; 2023-01-17)
PROC: 3E033XZ Introduction of Vasopressor into Peripheral Vein, Percutaneous Approach (ICD-10-PCS; 2023-01-17)
PROC: 3E03329 Introduction of Other Anti-infective into Peripheral Vein, Percutaneous Approach (ICD-10-PCS; 2023-01-17)
PROC: 02HV33Z Insertion of Infusion Device into Superior Vena Cava, Percutaneous Approach (ICD-10-PCS; 2023-01-17)
PROC: 5A1945Z Respiratory Ventilation, 24-96 Consecutive Hours (ICD-10-PCS; 2023-01-18)
PROC: 027034Z Dilation of Coronary Artery, One Artery with Drug-eluting Intraluminal Device, Percutaneous Approach (ICD-10-PCS; 2023-01-20)
PROC: 4A033BC Measurement of Arterial Pressure, Coronary, Percutaneous Approach (ICD-10-PCS; 2023-01-20)
PROC: 4A023N7 Measurement of Cardiac Sampling and Pressure, Left Heart, Percutaneous Approach (ICD-10-PCS; 2023-01-20)
PROC: B2111ZZ Fluoroscopy of Multiple Coronary Arteries using Low Osmolar Contrast (ICD-10-PCS; 2023-01-20)
DX: A41.9 Sepsis, unspecified organism (principal); I21.4 Non-ST elevation (NSTEMI) myocardial infarction; J96.01 Acute respiratory failure with hypoxia; R65.21 Severe sepsis with septic shock; J96.02 Acute respiratory failure with hypercapnia; I50.21 Acute systolic (congestive) heart failure; J10.01 Influenza due to other identified influenza virus with the same other identified influenza virus pneumonia; J44.1 Chronic obstructive pulmonary disease with (acute) exacerbation; J44.0 Chronic obstructive pulmonary disease with (acute) lower respiratory infection; E87.20 Acidosis, unspecified; I25.10 Atherosclerotic heart disease of native coronary artery without angina pectoris; E87.6 Hypokalemia; E86.0 Dehydration; R79.1 Abnormal coagulation profile; E11.65 Type 2 diabetes mellitus with hyperglycemia; F17.200 Nicotine dependence, unspecified, uncomplicated; I25.5 Ischemic cardiomyopathy; B33.24 Viral cardiomyopathy; I44.7 Left bundle-branch block, unspecified; E83.51 Hypocalcemia; Z85.038 Personal history of other malignant neoplasm of large intestine; Z90.49 Acquired absence of other specified parts of digestive tract; Z88.1 Allergy status to other antibiotic agents; Z88.0 Allergy status to penicillin; Z88.5 Allergy status to narcotic agent; Z88.8 Allergy status to other drugs, medicaments and biological substances; Z11.52 Encounter for screening for COVID-19; Z78.1 Physical restraint status
CPT/HCPCS: 0202U; 31500; 36415; 36569; 51702; 71045; 71260; 76937; 80048; 80053; 80069; 80202; 81001; 82330; 82803; 82947; 83036; 83605; 83735; 83880; 84100; 84132; 84145; 84443; 84484; 85025; 85027; 85347; 85379; 85520; 85610; 85730; 87040; 87070; 87205; 93005; 93010; 93306; 93458; 93571; 94002; 94640; 94660; 94760; 94761; 94762; 96361; 96365; 96375; 97110; 97116; 97162; 97165; 97530; 99152; 99153; 99291-25; A9270; C1751; C1769; C1874; C1887; C1894; C9113; C9600; J0612; J0692; J0696; J1644; J1815; J1940; J1956; J2060; J2250; J2704; J2930; J3010; J3246; J3370; J3475; J3480; J7030; J7040; J7050; J7060; J7512; Q9967